=== PATIENT | female | born 1995 | race Caucasian/White ===

== ENCOUNTER 2018-01-01 21:28 | Emergency (ER) | payer OTHER ==
[~2018-01-01] VITALS: Ht 170.2 cm; Wt 73.9 kg
[2018-01-01 21:40] VITALS: Ht 170.2 cm; Wt 73.9 kg
[2018-01-02 02:22] LABS: BASOPHIL % 0.3 % (0-2); CALCIUM 8.6 mg/dL (8.5-10.1); CARBON DIOXIDE 27.3 mmol/L (21-32); CHLORIDE SERUM 105 mmol/L (98-107); CREATININE SERUM 0.7 mg/dL (0.6-1.0); GFR1 > 60 mL/min; GLUCOSE SERUM 91 mg/dL (74-106); PLATELET COUNT 311 x10^3mcL (130-400); POTASSIUM SERUM 3.7 mmol/L (3.5-5.1); RED CELL DISTRIBUTION WIDTH 12.2 % (11.5-14.5); SODIUM SERUM 141 mmol/L (136-145)
[2018-01-02 02:30] LABS: ALBUMIN 4.1 g/dL (3.4-5.0); ALKALINE PHOSPHATASE 76 U/L (46-116); ALT/SGPT 26 U/L (14-59); AST/SGOT 19 U/L (15-37); BILIRUBIN TOTAL 0.34 mg/dL (0.20-1.00); FREE T4 1.11 ng/dL (0.76-1.46); TOTAL PROTEIN, SERUM 7.5 g/dL (6.4-8.2)
[2018-01-02 04:29] VITALS: BP 118/71
== END 2018-01-02 04:29 | disposition home or self-care (01) ==
LOC: ED 21:28
PROVIDERS: Emergency Medicine
DX: R25.8 Other abnormal involuntary movements (principal); Z88.0 Allergy status to penicillin
CPT/HCPCS: 36415; 84439; J3475; J3490

== ENCOUNTER 2018-11-24 20:04 | Emergency (ER) | payer OTHER ==
[~2018-11-24] VITALS: Ht 162.6 cm; Wt 80.7 kg
[2018-11-24 20:14] VITALS: Ht 162.6 cm; Wt 80.7 kg
[2018-11-24 23:25] VITALS: BP 120/69
== END 2018-11-24 23:20 | disposition home or self-care (01) ==
LOC: ED 20:04
DX: M25.511 Pain in right shoulder (principal); Z88.0 Allergy status to penicillin
CPT/HCPCS: J1885

== ENCOUNTER 2019-08-05 07:59 | Emergency (ER) | payer BC, MEDICAID ==
[~2019-08-05] VITALS: Ht 165.1 cm; Wt 77.6 kg
[2019-08-05 08:09] VITALS: Ht 165.1 cm; Wt 77.6 kg
[2019-08-05 08:39] VITALS: BP 119/66
== END 2019-08-05 08:39 | disposition home or self-care (01) ==
LOC: ED 07:59
DX: J04.0 Acute laryngitis (principal); Z88.0 Allergy status to penicillin; Z98.890 Other specified postprocedural states

== ENCOUNTER 2020-11-15 12:28 | Emergency (ER) | payer BC, MEDICAID ==
[~2020-11-15] VITALS: Ht 160 cm; Wt 83.0 kg
[2020-11-15 12:35] VITALS: Ht 160 cm; Wt 83.0 kg
[2020-11-15] MEDS ORDERED: NAPROXEN500 MG PO (15:07)
[2020-11-15 15:26] VITALS: BP 120/76
== END 2020-11-15 15:26 | disposition home or self-care (01) ==
LOC: ED 12:28
DX: M54.5 Low back pain (principal); M25.561 Pain in right knee; M25.551 Pain in right hip; Z88.0 Allergy status to penicillin; Z98.890 Other specified postprocedural states; W10.8XXA Fall (on) (from) other stairs and steps, initial encounter; Y93.89 Activity, other specified; Y92.89 Other specified places as the place of occurrence of the external cause; Y99.8 Other external cause status